=== PATIENT | male | born 1975 | race Hispanic/Latino ===

== ENCOUNTER 2022-08-11 14:35 | Inpatient (IN) | payer SELFPAY ==
[2022-08-11 15:21] LABS: #Lymphocytes 1.3 thou/uL (1.20-3.40); #Monocytes 0.3 thou/uL (0.11-0.59); #Neutrophils 3.6 thou/uL (1.40-6.50); %Basophils 0.9 % (0.0-1.0); %Eosinophils 0.9 % (0.0-10.0); %Lymphocytes 24.1 % (21.0-51.0); %Monocytes 5.1 % (0.0-10.0); Hemoglobin 8.7 g/dL (14.0-18.0); Mean Corpuscular Hemoglobin 32.4 pg (27.0-31.0); Mean Corpuscular Volume 98.2 fl (78.0-98.0); Mean Platelet Volume 8.1 fL (7.4-10.4); Platelet Count 316 10x3/uL (130-400); RBC Distribution Width 12.1 % (11.5-14.5); Red Blood Cell (RBC) Count 2.69 mill/uL (4.70-6.10); White Blood Cell (WBC) Count 5.2 10x3/uL (4.8-10.8)
[2022-08-11] MEDS ORDERED: hydrALAZINE 20 MG/ML VIAL ONE (16:04)
[2022-08-11 16:40] LABS: Albumin 2.6 g/dL (3.5-5.0)
[2022-08-11 16:41] LABS: Chloride 109 mmol/L (98-107); Potassium 4.4 mmol/L (3.5-5.1); Sodium 137 mmol/L (136-145)
[2022-08-11 16:42] LABS: Calcium 8.5 mg/dL (7.8-10.44); Glucose 76 mg/dL (70-105)
[2022-08-11 16:43] LABS: Globulin 3.8 g/dL (2.4-3.5); Protein, Total 6.4 g/dL (6.0-8.3)
[2022-08-11 16:44] LABS: Anion Gap 13 mmol/L (10-20); Bilirubin, Total Less than 0.2 mg/dL (0.2-1.2); Carbon Dioxide 19 mmol/L (22-29)
[2022-08-11 16:45] LABS: Alkaline Phosphatase 140 U/L (40-110)
[2022-08-11 16:46] LABS: Calc. Creatinine Clearance 0 mL/min (70-130); Estimated GFR 28
[2022-08-11 16:47] LABS: AST (SGOT) 15 U/L (5-34); BUN (Urea Nitrogen) 22 mg/dL (8.9-20.6)
[2022-08-11 16:48] LABS: ALT (SGPT) 8 U/L (8-55)
[2022-08-11] MEDS ORDERED: Dextrose 50% Abboject 50 ML SYRINGE SLOW IVP PRN (18:40)
[2022-08-11] MEDS ORDERED: Ondansetron PF 4 MG/2 ML Vial IVP PRN (18:40)
[2022-08-11] MEDS ORDERED: Dextrose 5% in Water 1,000 ML IV PRN (18:40)
[2022-08-11] MEDS ORDERED: Acetaminophen 325 MG TAB PO PRN (18:40)
[2022-08-11] MEDS ORDERED: HumaLOG 300 UNITS/3 ML VIAL SC PRN (18:42)
[2022-08-11 18:53] LABS: SARS-CoV-2 NAA Rapid Test Not Detected (NotDetected)
[2022-08-11 19:57] LABS: Troponin I Less than 0.010 ng/mL (< 0.028)
[2022-08-11] MEDS ORDERED: Heparin 10,000 UNITS/ 10 ML VIAL ONE (23:06)
[2022-08-12] MEDS: Heparin 5,000 UNITS/ML VIAL SC SCH ×4 (01:47→21:00)
[2022-08-12] MEDS ORDERED: Furosemide 40 MG/4 ML VIAL ONE ×2 (05:55→14:09)
[2022-08-12] MEDS: Furosemide 20 MG/2 ML VIAL SLOW IVP SCH ×2 (06:29→14:14)
[2022-08-12] MEDS: Albumin 25% 25 GM/100 ML BOT IVPB SCH ×3 (06:29→17:46)
[2022-08-12 07:29] LABS: #Eosinphils 0.2 thou/uL (0.0-0.7); #Lymphocytes 1.6 thou/uL (1.20-3.40); #Monocytes 0.4 thou/uL (0.11-0.59); #Neutrophils 2.9 thou/uL (1.40-6.50); %Basophils 0.8 % (0.0-1.0); %Eosinophils 3.2 % (0.0-10.0); %Lymphocytes 32.2 % (21.0-51.0); %Monocytes 6.8 % (0.0-10.0); Hemoglobin 7.9 g/dL (14.0-18.0); Mean Corpuscular HGB CONC 32.6 g/dL (32.0-36.0); Mean Corpuscular Hemoglobin 32.9 pg (27.0-31.0); Mean Platelet Volume 7.5 fL (7.4-10.4); Platelet Count 282 10x3/uL (130-400); RBC Distribution Width 12.3 % (11.5-14.5); Red Blood Cell (RBC) Count 2.41 mill/uL (4.70-6.10); White Blood Cell (WBC) Count 5.1 10x3/uL (4.8-10.8)
[2022-08-12 08:03] LABS: Anion Gap 11 mmol/L (10-20); BUN (Urea Nitrogen) 28 mg/dL (8.9-20.6); Calc. Creatinine Clearance 0 mL/min (70-130); Carbon Dioxide 21 mmol/L (22-29); Chloride 110 mmol/L (98-107); Estimated GFR 26; Glucose 93 mg/dL (70-105); Potassium 4.1 mmol/L (3.5-5.1); Sodium 138 mmol/L (136-145)
[2022-08-12] MEDS ORDERED: Metoprolol Tartrate 25 MG TAB PO SCH (09:45)
[2022-08-12] MEDS ORDERED: Metoprolol Tartrate 25 MG TAB ONE (10:22)
[2022-08-12 13:02] LABS: Bacteria/HPF None Seen HPF (None Seen); Bilirubin Negative (Negative); Blood, Urine Trace (Negative); Clarity Clear (Clear); Glucose, Urine (Dipstick) 70 mg/dL (Negative); Ketone, Urine Negative (Negative); Leukocyte Negative Leu/uL (Negative); Nitrite Negative (Negative); Protein, Urine (Dipstick) 100 mg/dL (Neg-Trace); RBC/HPF 0-3 HPF (0-3); Specific Gravity, Urine 1.007 (1.002-1.036); Squamous Epithelial None Seen HPF (0-3); Urobilinogen Normal mg/dL (Less than 2); WBC/HPF 0-3 HPF (0-3)
[2022-08-12] MEDS: niCARdipine 25 MG in Sodium Chloride 0.9% 250 ML 250 ML IVPB SCH (15:15)
[2022-08-12 15:25] VITALS: BMI 35.4
[2022-08-12] MEDS: Metoprolol Tartrate 25 MG TAB PO SCH (20:59)
[2022-08-13] MEDS: Albumin 25% 25 GM/100 ML BOT IVPB SCH (00:13)
[2022-08-13] MEDS ORDERED: hydrALAZINE 25 MG TAB PO SCH ×2 (01:30→10:30)
[2022-08-13 03:52] LABS: #Eosinphils 0.2 thou/uL (0.0-0.7); #Monocytes 0.4 thou/uL (0.11-0.59); %Basophils 0.9 % (0.0-1.0); %Eosinophils 4.1 % (0.0-10.0); %Lymphocytes 35.2 % (21.0-51.0); %Monocytes 6.6 % (0.0-10.0); %Neutrophils 53.3 % (42.0-75.0); Hemoglobin 7.3 g/dL (14.0-18.0); Hemoglobin A1c 5.2 % (4.0-6.0); Mean Corpuscular HGB CONC 31.9 g/dL (32.0-36.0); Mean Corpuscular Hemoglobin 31.8 pg (27.0-31.0); Mean Corpuscular Volume 99.5 fl (78.0-98.0); Platelet Count 265 10x3/uL (130-400); RBC Distribution Width 12.1 % (11.5-14.5); Red Blood Cell (RBC) Count 2.29 mill/uL (4.70-6.10); White Blood Cell (WBC) Count 5.6 10x3/uL (4.8-10.8)
[2022-08-13 04:13] LABS: Anion Gap 12 mmol/L (10-20); BUN (Urea Nitrogen) 28 mg/dL (8.9-20.6); Calc. Creatinine Clearance 37 mL/min (70-130); Calcium 8.3 mg/dL (7.8-10.44); Carbon Dioxide 21 mmol/L (22-29); Chloride 112 mmol/L (98-107); Estimated GFR 22; Glucose 133 mg/dL (70-105); Potassium 3.8 mmol/L (3.5-5.1); Sodium 141 mmol/L (136-145)
[2022-08-13] MEDS: Furosemide 20 MG/2 ML VIAL SLOW IVP SCH ×2 (05:12→12:35)
[2022-08-13] MEDS: Heparin 5,000 UNITS/ML VIAL SC SCH ×3 (08:17→20:11)
[2022-08-13] MEDS: Metoprolol Tartrate 25 MG TAB PO SCH ×2 (08:17→20:11)
[2022-08-13] MEDS ORDERED: FLU VACC QS2022-23(6MOS UP)/PF 60 MCG/0.5 ML SYRINGE IM ONE (09:00)
[2022-08-13] MEDS ORDERED: Metoprolol Tartrate 25 MG TAB PO SCH ×3 (10:30→21:00)
[2022-08-13] MEDS: HumaLOG 300 UNITS/3 ML VIAL SC PRN ×2 (11:28→17:05)
[2022-08-13] MEDS ORDERED: Docusate 100 MG CAP PO PRN (11:59)
[2022-08-13] MEDS ORDERED: Losartan 25 MG TAB PO SCH (12:25)
[2022-08-13] MEDS ORDERED: Labetalol HCl 100 MG/20 ML VIAL SLOW IVP SCH ×2 (15:15→18:30)
[2022-08-13] MEDS: hydrALAZINE 25 MG TAB PO SCH ×2 (15:18→20:11)
[2022-08-13] MEDS ORDERED: Labetalol HCl 100 MG/20 ML VIAL IVPB SCH (18:30)
[2022-08-14 04:00] LABS: #Eosinphils 0.3 thou/uL (0.0-0.7); #Monocytes 0.5 thou/uL (0.11-0.59); #Neutrophils 3.1 thou/uL (1.40-6.50); %Basophils 0.7 % (0.0-1.0); %Eosinophils 4.6 % (0.0-10.0); %Lymphocytes 33.9 % (21.0-51.0); %Monocytes 7.8 % (0.0-10.0); %Neutrophils 52.9 % (42.0-75.0); Hemoglobin 7.4 g/dL (14.0-18.0); Mean Corpuscular HGB CONC 32.6 g/dL (32.0-36.0); Mean Corpuscular Hemoglobin 32.6 pg (27.0-31.0); Mean Corpuscular Volume 99.9 fl (78.0-98.0); Mean Platelet Volume 8.1 fL (7.4-10.4); Platelet Count 280 10x3/uL (130-400); RBC Distribution Width 11.9 % (11.5-14.5); Red Blood Cell (RBC) Count 2.28 mill/uL (4.70-6.10); White Blood Cell (WBC) Count 5.9 10x3/uL (4.8-10.8)
[2022-08-14 04:06] LABS: Reticulocyte Count 1.8 % (0.5-1.5)
[2022-08-14 04:28] LABS: Anion Gap 13 mmol/L (10-20); BUN (Urea Nitrogen) 29 mg/dL (8.9-20.6); Calc. Creatinine Clearance 35 mL/min (70-130); Calcium 8.3 mg/dL (7.8-10.44); Carbon Dioxide 20 mmol/L (22-29); Chloride 110 mmol/L (98-107); Estimated GFR 22; Glucose 136 mg/dL (70-105); Potassium 3.7 mmol/L (3.5-5.1); Sodium 139 mmol/L (136-145)
[2022-08-14] MEDS: Furosemide 20 MG/2 ML VIAL SLOW IVP SCH ×2 (05:58→15:17)
[2022-08-14] MEDS: hydrALAZINE 25 MG TAB PO SCH ×3 (08:16→20:12)
[2022-08-14] MEDS: Metoprolol Tartrate 25 MG TAB PO SCH ×2 (08:17→20:12)
[2022-08-14] MEDS: Losartan 25 MG TAB PO SCH (08:17)
[2022-08-14] MEDS: Heparin 5,000 UNITS/ML VIAL SC SCH ×3 (08:17→20:12)
[2022-08-14] MEDS: Amlodipine 10 MG TAB PO SCH (08:30)
[2022-08-14] MEDS: niCARdipine 25 MG in Sodium Chloride 0.9% 250 ML 250 ML IVPB SCH (11:09)
[2022-08-14] MEDS: HumaLOG 300 UNITS/3 ML VIAL SC PRN (11:52)
[2022-08-15 04:21] LABS: #Basophils 0.1 thou/uL (0.0-0.2); #Eosinphils 0.4 thou/uL (0.0-0.7); #Lymphocytes 1.9 thou/uL (1.20-3.40); #Monocytes 0.4 thou/uL (0.11-0.59); #Neutrophils 2.7 thou/uL (1.40-6.50); %Eosinophils 7.3 % (0.0-10.0); %Lymphocytes 35.6 % (21.0-51.0); %Monocytes 6.7 % (0.0-10.0); %Neutrophils 49.5 % (42.0-75.0); Hemoglobin 7.7 g/dL (14.0-18.0); Mean Corpuscular HGB CONC 32.9 g/dL (32.0-36.0); Mean Corpuscular Hemoglobin 32.5 pg (27.0-31.0); Mean Platelet Volume 8.3 fL (7.4-10.4); Platelet Count 291 10x3/uL (130-400); RBC Distribution Width 12.2 % (11.5-14.5); Red Blood Cell (RBC) Count 2.37 mill/uL (4.70-6.10); White Blood Cell (WBC) Count 5.4 10x3/uL (4.8-10.8)
[2022-08-15 04:48] LABS: Anion Gap 13 mmol/L (10-20); BUN (Urea Nitrogen) 30 mg/dL (8.9-20.6); Calc. Creatinine Clearance 34 mL/min (70-130); Calcium 8.2 mg/dL (7.8-10.44); Carbon Dioxide 22 mmol/L (22-29); Chloride 109 mmol/L (98-107); Estimated GFR 21; Glucose 137 mg/dL (70-105); Potassium 3.5 mmol/L (3.5-5.1); Sodium 140 mmol/L (136-145)
[2022-08-15] MEDS: Furosemide 20 MG/2 ML VIAL SLOW IVP SCH ×2 (05:29→15:39)
[2022-08-15] MEDS: Heparin 5,000 UNITS/ML VIAL SC SCH ×3 (07:50→21:17)
[2022-08-15] MEDS: Losartan 25 MG TAB PO SCH (07:51)
[2022-08-15] MEDS: hydrALAZINE 25 MG TAB PO SCH ×3 (07:51→21:16)
[2022-08-15] MEDS: Metoprolol Tartrate 25 MG TAB PO SCH ×2 (07:51→21:16)
[2022-08-15] MEDS: Amlodipine 10 MG TAB PO SCH (07:51)
[2022-08-15] MEDS: HumaLOG 300 UNITS/3 ML VIAL SC PRN (11:46)
[2022-08-16 04:52] LABS: Anion Gap 12 mmol/L (10-20); BUN (Urea Nitrogen) 33 mg/dL (8.9-20.6); Calc. Creatinine Clearance 30 mL/min (70-130); Carbon Dioxide 21 mmol/L (22-29); Chloride 110 mmol/L (98-107); Estimated GFR 18; Glucose 142 mg/dL (70-105); Potassium 3.4 mmol/L (3.5-5.1); Sodium 140 mmol/L (136-145)
[2022-08-16] MEDS: Furosemide 20 MG/2 ML VIAL SLOW IVP SCH ×2 (05:40→12:51)
[2022-08-16] MEDS: Losartan 25 MG TAB PO SCH (08:49)
[2022-08-16] MEDS: Amlodipine 10 MG TAB PO SCH (08:49)
[2022-08-16] MEDS: Metoprolol Tartrate 25 MG TAB PO SCH ×2 (08:49→20:57)
[2022-08-16] MEDS: hydrALAZINE 25 MG TAB PO SCH ×3 (08:49→20:57)
[2022-08-16] MEDS: Heparin 5,000 UNITS/ML VIAL SC SCH ×3 (08:49→20:57)
[2022-08-16 21:02] VITALS: BP 157/78
[2022-08-17 04:16] LABS: #Basophils 0.1 thou/uL (0.0-0.2); #Eosinphils 0.3 thou/uL (0.0-0.7); #Lymphocytes 1.9 thou/uL (1.20-3.40); #Monocytes 0.4 thou/uL (0.11-0.59); #Neutrophils 2.8 thou/uL (1.40-6.50); %Basophils 1.1 % (0.0-1.0); %Lymphocytes 34.7 % (21.0-51.0); %Neutrophils 52.2 % (42.0-75.0); Hemoglobin 7.5 g/dL (14.0-18.0); Mean Corpuscular HGB CONC 32.9 g/dL (32.0-36.0); Mean Corpuscular Hemoglobin 33.3 pg (27.0-31.0); Mean Platelet Volume 8.2 fL (7.4-10.4); Platelet Count 303 10x3/uL (130-400); RBC Distribution Width 12.1 % (11.5-14.5); Red Blood Cell (RBC) Count 2.25 mill/uL (4.70-6.10); White Blood Cell (WBC) Count 5.4 10x3/uL (4.8-10.8)
[2022-08-17 04:29] LABS: Anion Gap 12 mmol/L (10-20); BUN (Urea Nitrogen) 34 mg/dL (8.9-20.6); Calc. Creatinine Clearance 31 mL/min (70-130); Carbon Dioxide 22 mmol/L (22-29); Chloride 111 mmol/L (98-107); Estimated GFR 19; Glucose 144 mg/dL (70-105); Potassium 3.4 mmol/L (3.5-5.1); Sodium 142 mmol/L (136-145)
[2022-08-17] MEDS: Furosemide 20 MG/2 ML VIAL SLOW IVP SCH ×2 (05:41→15:45)
[2022-08-17] MEDS: hydrALAZINE 25 MG TAB PO SCH ×2 (09:03→15:44)
[2022-08-17] MEDS: Amlodipine 10 MG TAB PO SCH (09:04)
[2022-08-17] MEDS: Heparin 5,000 UNITS/ML VIAL SC SCH ×2 (09:04→15:45)
[2022-08-17] MEDS: Metoprolol Tartrate 25 MG TAB PO SCH (09:04)
[2022-08-17] MEDS: Losartan 25 MG TAB PO SCH (09:04)
[2022-08-17 13:27] VITALS: TEMP 98.2
[2022-08-17 16:13] LABS: A/G Ratio 0.8 (0.7-1.7); Albumin 2.3 g/dL (2.9-4.4); Alpha 1 0.3 g/dL (0.0-0.4); Alpha 2 0.9 g/dL (0.4-1.0); Beta 0.9 g/dL (0.7-1.3); Gamma 0.9 g/dL (0.4-1.8); M-Spike Not Observed g/dL (Not Observed); Protein Electrophoresis Intrp Note: (.)
== END 2022-08-17 15:51 | disposition home or self-care (01) | DRG 305 ==
LOC: ERS 14:35 → ERHOLD 17:52 → IMCU/EMU 08-12 15:05
PROVIDERS: ADMIT Family Medicine; ATTEND Internal Medicine
DX: I16.0 Hypertensive urgency (principal); N17.9 Acute kidney failure, unspecified; E11.649 Type 2 diabetes mellitus with hypoglycemia without coma; Z20.822 Contact with and (suspected) exposure to COVID-19; E78.5 Hyperlipidemia, unspecified; I12.9 Hypertensive chronic kidney disease with stage 1 through stage 4 chronic kidney disease, or unspecified chronic kidney disease; E11.22 Type 2 diabetes mellitus with diabetic chronic kidney disease; D63.1 Anemia in chronic kidney disease; M19.90 Unspecified osteoarthritis, unspecified site; E88.09 Other disorders of plasma-protein metabolism, not elsewhere classified; N18.9 Chronic kidney disease, unspecified; E11.319 Type 2 diabetes mellitus with unspecified diabetic retinopathy without macular edema; T38.3X5A Adverse effect of insulin and oral hypoglycemic [antidiabetic] drugs, initial encounter; Z79.84 Long term (current) use of oral hypoglycemic drugs; Z79.899 Other long term (current) drug therapy
CPT/HCPCS: 36415; 36416; 71045; 76770; 80048; 80053; 81001; 82274; 83036; 83880; 84155; 84165; 84443; 84484; 85025; 85046; 87040; 87077; 87149; 87186; 93005; 93306; 96374; J0360; J1644; J1940; J7050; J7070; P9047; U0002

== ENCOUNTER 2022-10-06 23:50 | Inpatient (IN) | payer MEDICAID, SELFPAY ==
[2022-10-07] MEDS ORDERED: CALCIUM GLUC 1 GM/NS 50 ML BAG ONE (00:01)
[2022-10-07] MEDS ORDERED: Calcium Gluc 4.6 MEQ/10 ML (100 MG/ML) ONE ×2 (00:01→01:09)
[2022-10-07] MEDS ORDERED: Sodium Bicarb 50 MEQ/50 ML Abboject 8.4% SYRINGE ONE (00:03)
[2022-10-07] MEDS ORDERED: Dextrose 50% Abboject 50 ML SYRINGE ONE (00:03)
[2022-10-07 00:20] LABS: #Basophils 0.1 thou/uL (0.0-0.2); #Eosinphils 0.1 thou/uL (0.0-0.7); #Lymphocytes 1.5 thou/uL (1.20-3.40); #Monocytes 0.4 thou/uL (0.11-0.59); #Neutrophils 2.4 thou/uL (1.40-6.50); %Basophils 1.1 % (0.0-1.0); %Eosinophils 2.6 % (0.0-10.0); %Lymphocytes 33.1 % (21.0-51.0); %Monocytes 8.8 % (0.0-10.0); %Neutrophils 54.3 % (42.0-75.0); Hemoglobin 8.6 g/dL (14.0-18.0); Mean Corpuscular HGB CONC 31.7 g/dL (32.0-36.0); Mean Corpuscular Volume 97.9 fl (78.0-98.0); Mean Platelet Volume 8.7 fL (7.4-10.4); Platelet Count 286 10x3/uL (130-400); RBC Distribution Width 12.1 % (11.5-14.5); Red Blood Cell (RBC) Count 2.77 mill/uL (4.70-6.10); White Blood Cell (WBC) Count 4.4 10x3/uL (4.8-10.8)
[2022-10-07 00:39] LABS: Actual Bicarbonate (HCO3a) 18.4 mEq/L (22-28); Analyzer IN Cardio ER; Base Excess (BEa) -7.2 mEq/L (-2.0 to +3.0); CO2 Tension 37.5 mmHg (35.0-45.0); Calcium, Ionized (arterial) 1.06 mmol/L (1.12-1.30); Carboxyhemoglobin (COHb) 0.2 gm% (0.0-3.0); pH, Arterial 7.31 (7.35-7.45)
[2022-10-07 00:41] LABS: ALT (SGPT) 40 U/L (8-55); AST (SGOT) 36 U/L (5-34); Albumin 3.4 g/dL (3.5-5.0); Alkaline Phosphatase 182 U/L (40-110); Anion Gap 15 mmol/L (10-20); BUN (Urea Nitrogen) 91 mg/dL (8.9-20.6); Bilirubin, Total 0.2 mg/dL (0.2-1.2); Calc. Creatinine Clearance 0 mL/min (70-130); Carbon Dioxide 19 mmol/L (22-29); Chloride 99 mmol/L (98-107); Estimated GFR 18; Globulin 3.4 g/dL (2.4-3.5); Glucose 161 mg/dL (70-105); Magnesium 3.5 mg/dL (1.6-2.6); Protein, Total 6.8 g/dL (6.0-8.3); Sodium 124 mmol/L (136-145)
[2022-10-07 00:44] LABS: Potassium 8.6 mmol/L (3.5-5.1)
[2022-10-07 00:54] LABS: O2 Tension (PaO2), arterial 52.6 mmHg (80.0-100.0); Potassium - ABG Lab 8.26 mmol/L (3.70-5.30)
[2022-10-07 00:55] LABS: ALV-art Gradient 71.645 mmHg (0-20); Puncture Site RRA
[2022-10-07] MEDS ORDERED: Insulin Regular 300 UNITS/3 ML VIAL ONE (01:11)
[2022-10-07] MEDS ORDERED: Senokot S 8.6-50 MG TAB PO PRN (02:49)
[2022-10-07] MEDS ORDERED: Ondansetron ODT 4 MG TAB PO PRN (02:49)
[2022-10-07] MEDS ORDERED: Calcium Carbonate 500 MG ChewTAB PO PRN (02:49)
[2022-10-07 03:10] LABS: SARS-CoV-2 NAA Rapid Test Not Detected (NotDetected)
[2022-10-07 04:42] LABS: HBSAB Concentration Less than 8.00 mIU/mL; HBSAg Index 0.24 S/CO (0-0.99); Hep B Core Total Ab Non-Reactive (NonReactive); Hep B Core Total Index 0.15 S/CO (0-0.79); Hep B Surf AB Non-Reactive (NonReactive); Hep B Surf Ag Non-Reactive S/CO (NonReactive); Hep C IgG Ab Non-Reactive (NonReactive); Hep C Index 0.16 S/CO (0-0.79)
[2022-10-07 05:32] VITALS: BMI 36.5
[2022-10-07 07:51] LABS: Anion Gap 12 mmol/L (10-20); BUN (Urea Nitrogen) 65 mg/dL (8.9-20.6); BUN/Creatinine Ratio 24.07; Calc. Creatinine Clearance 51 mL/min (70-130); Calcium 8.2 mg/dL (7.8-10.44); Carbon Dioxide 21 mmol/L (22-29); Chloride 103 mmol/L (98-107); Estimated GFR 29; Phosphorus 4.9 mg/dL (2.3-4.7); Sodium 130 mmol/L (136-145)
[2022-10-07 07:59] LABS: Glucose 49 mg/dL (70-105); Potassium 6.3 mmol/L (3.5-5.1)
[2022-10-07] MEDS ORDERED: Heparin 10,000 UNITS/ 10 ML VIAL ONE ×2 (08:48→08:51)
[2022-10-07] MEDS: Heparin 5,000 UNITS/ML VIAL SC SCH ×2 (08:55→20:10)
[2022-10-07] MEDS: Famotidine 20 MG TAB PO SCH (11:30)
[2022-10-08 00:32] LABS: Albumin 2.8 g/dL (3.5-5.0); Anion Gap 11 mmol/L (10-20); BUN (Urea Nitrogen) 54 mg/dL (8.9-20.6); BUN/Creatinine Ratio 20.38; Calc. Creatinine Clearance 52 mL/min (70-130); Calcium 8.1 mg/dL (7.8-10.44); Carbon Dioxide 24 mmol/L (22-29); Chloride 105 mmol/L (98-107); Estimated GFR 29; Glucose 101 mg/dL (70-105); Phosphorus 4.1 mg/dL (2.3-4.7); Potassium 5.9 mmol/L (3.5-5.1); Sodium 134 mmol/L (136-145)
[2022-10-08 07:44] LABS: Anion Gap 11 mmol/L (10-20); BUN (Urea Nitrogen) 51 mg/dL (8.9-20.6); Calc. Creatinine Clearance 46 mL/min (70-130); Calcium 7.9 mg/dL (7.8-10.44); Carbon Dioxide 23 mmol/L (22-29); Chloride 109 mmol/L (98-107); Estimated GFR 28; Glucose 75 mg/dL (70-105); Potassium 5.9 mmol/L (3.5-5.1); Sodium 137 mmol/L (136-145)
[2022-10-08 07:45] LABS: Hemoglobin 7.4 g/dL (14.0-18.0); Mean Corpuscular HGB CONC 32.9 g/dL (32.0-36.0); Mean Corpuscular Hemoglobin 31.7 pg (27.0-31.0); Mean Corpuscular Volume 96.2 fl (78.0-98.0); Mean Platelet Volume 7.9 fL (7.4-10.4); Platelet Count 219 10x3/uL (130-400); RBC Distribution Width 12.1 % (11.5-14.5); Red Blood Cell (RBC) Count 2.34 mill/uL (4.70-6.10); White Blood Cell (WBC) Count 3.3 10x3/uL (4.8-10.8)
[2022-10-08] MEDS ORDERED: EPOETIN ALFA-EPBX (ESRD) 4,000 UNIT/ML VIAL SC SCH (08:30)
[2022-10-08] MEDS: Heparin 5,000 UNITS/ML VIAL SC SCH ×2 (08:35→20:09)
[2022-10-08 08:44] LABS: Eosinophils 4 % (0-10); Lymphocytes 63 % (21-51); MDiff Complete? YES; Monocytes 10 % (0-10); Neutrophil 23 % (42-75); Platelet Morphology Comment Appears Adequate
[2022-10-08] MEDS: EPOETIN ALFA-EPBX (ESRD) 10,000 UNIT/ML VIAL SC SCH (16:42)
[2022-10-08] MEDS: Tuberculin PPD 0.1 ML VIAL I-DERMAL SCH (17:03)
[2022-10-09 04:31] LABS: #Basophils 0.1 thou/uL (0.0-0.2); #Eosinphils 0.2 thou/uL (0.0-0.7); #Lymphocytes 2.3 thou/uL (1.20-3.40); #Monocytes 0.6 thou/uL (0.11-0.59); #Neutrophils 1.9 thou/uL (1.40-6.50); %Basophils 1.2 % (0.0-1.0); %Eosinophils 4.3 % (0.0-10.0); %Lymphocytes 45.3 % (21.0-51.0); %Monocytes 12.5 % (0.0-10.0); %Neutrophils 36.7 % (42.0-75.0); Hemoglobin 5.7 g/dL (14.0-18.0); Mean Corpuscular HGB CONC 33.4 g/dL (32.0-36.0); Mean Corpuscular Volume 95.8 fl (78.0-98.0); Mean Platelet Volume 8.1 fL (7.4-10.4); Platelet Count 270 10x3/uL (130-400); RBC Distribution Width 11.9 % (11.5-14.5); White Blood Cell (WBC) Count 5.1 10x3/uL (4.8-10.8)
[2022-10-09 04:36] LABS: Anion Gap 10 mmol/L (10-20); BUN (Urea Nitrogen) 32 mg/dL (8.9-20.6); Calc. Creatinine Clearance 66 mL/min (70-130); Calcium 8.3 mg/dL (7.8-10.44); Carbon Dioxide 26 mmol/L (22-29); Chloride 107 mmol/L (98-107); Estimated GFR 43; Glucose 104 mg/dL (70-105); Potassium 4.4 mmol/L (3.5-5.1); Sodium 139 mmol/L (136-145)
[2022-10-09 05:01] LABS: #Eosinphils 0.2 thou/uL (0.0-0.7); #Monocytes 0.5 thou/uL (0.11-0.59); #Neutrophils 1.5 thou/uL (1.40-6.50); %Basophils 0.6 % (0.0-1.0); %Eosinophils 4.1 % (0.0-10.0); %Lymphocytes 46.3 % (21.0-51.0); %Monocytes 12.6 % (0.0-10.0); %Neutrophils 36.3 % (42.0-75.0); Hemoglobin 7.4 g/dL (14.0-18.0); Mean Corpuscular HGB CONC 33.2 g/dL (32.0-36.0); Mean Corpuscular Hemoglobin 31.8 pg (27.0-31.0); Mean Corpuscular Volume 95.7 fl (78.0-98.0); Mean Platelet Volume 7.4 fL (7.4-10.4); Platelet Count 207 10x3/uL (130-400); Red Blood Cell (RBC) Count 2.32 mill/uL (4.70-6.10); White Blood Cell (WBC) Count 4.2 10x3/uL (4.8-10.8)
[2022-10-09] MEDS: Tuberculin PPD 0.1 ML VIAL I-DERMAL SCH (08:03)
[2022-10-09] MEDS: Heparin 5,000 UNITS/ML VIAL SC SCH ×2 (08:30→20:02)
[2022-10-09] MEDS: Famotidine 20 MG TAB PO SCH (08:30)
[2022-10-09] MEDS ORDERED: Heparin 10,000 UNITS/ 10 ML VIAL ONE (12:33)
[2022-10-09] MEDS: Metoprolol Tartrate 25 MG TAB PO SCH (18:37)
[2022-10-09] MEDS: hydrALAZINE 25 MG TAB PO SCH (18:37)
[2022-10-09] MEDS: Atorvastatin Calcium 20 MG TAB PO SCH (20:01)
[2022-10-10] MEDS ORDERED: Losartan 25 MG TAB PO SCH (00:15)
[2022-10-10] MEDS ORDERED: hydrALAZINE 25 MG TAB PO SCH (00:15)
[2022-10-10 04:18] LABS: #Eosinphils 0.2 thou/uL (0.0-0.7); #Lymphocytes 1.6 thou/uL (1.20-3.40); #Monocytes 0.4 thou/uL (0.11-0.59); #Neutrophils 2.4 thou/uL (1.40-6.50); %Basophils 0.4 % (0.0-1.0); %Eosinophils 4.8 % (0.0-10.0); %Lymphocytes 34.5 % (21.0-51.0); %Monocytes 8.4 % (0.0-10.0); Hemoglobin 9.1 g/dL (14.0-18.0); Mean Corpuscular HGB CONC 32.6 g/dL (32.0-36.0); Mean Corpuscular Hemoglobin 31.2 pg (27.0-31.0); Mean Corpuscular Volume 95.9 fl (78.0-98.0); Mean Platelet Volume 7.2 fL (7.4-10.4); Platelet Count 197 10x3/uL (130-400); RBC Distribution Width 12.1 % (11.5-14.5); Red Blood Cell (RBC) Count 2.91 mill/uL (4.70-6.10); White Blood Cell (WBC) Count 4.7 10x3/uL (4.8-10.8)
[2022-10-10 04:35] LABS: Anion Gap 10 mmol/L (10-20); BUN (Urea Nitrogen) 18 mg/dL (8.9-20.6); Calc. Creatinine Clearance 0 mL/min (70-130); Calcium 8.3 mg/dL (7.8-10.44); Carbon Dioxide 28 mmol/L (22-29); Chloride 106 mmol/L (98-107); Estimated GFR 46; Glucose 152 mg/dL (70-105); Potassium 4.9 mmol/L (3.5-5.1); Sodium 139 mmol/L (136-145)
[2022-10-10] MEDS: Tuberculin PPD 0.1 ML VIAL I-DERMAL SCH (08:31)
[2022-10-10] MEDS ORDERED: FLU VACC QS2022-23(6MOS UP)/PF 60 MCG/0.5 ML SYRINGE IM ONE (09:00)
[2022-10-10] MEDS: Amlodipine 10 MG TAB PO SCH (09:06)
[2022-10-10] MEDS: Metoprolol Tartrate 25 MG TAB PO SCH ×2 (09:07→21:08)
[2022-10-10] MEDS: Heparin 5,000 UNITS/ML VIAL SC SCH ×2 (09:07→21:09)
[2022-10-10] MEDS: hydrALAZINE 25 MG TAB PO SCH ×3 (09:07→21:08)
[2022-10-10] MEDS: Losartan 25 MG TAB PO SCH (09:07)
[2022-10-10] MEDS: Ferrous Gluconate 324 MG TAB PO SCH (09:07)
[2022-10-10] MEDS: Atorvastatin Calcium 20 MG TAB PO SCH (21:08)
[2022-10-11 05:08] LABS: #Eosinphils 0.4 thou/uL (0.0-0.7); #Monocytes 0.5 thou/uL (0.11-0.59); %Basophils 0.3 % (0.0-1.0); %Eosinophils 7.3 % (0.0-10.0); %Lymphocytes 42.1 % (21.0-51.0); %Monocytes 9.9 % (0.0-10.0); %Neutrophils 40.4 % (42.0-75.0); Hemoglobin 7.4 g/dL (14.0-18.0); Mean Corpuscular HGB CONC 32.8 g/dL (32.0-36.0); Mean Corpuscular Hemoglobin 31.5 pg (27.0-31.0); Mean Corpuscular Volume 96.2 fl (78.0-98.0); Mean Platelet Volume 7.1 fL (7.4-10.4); Platelet Count 184 10x3/uL (130-400); Red Blood Cell (RBC) Count 2.34 mill/uL (4.70-6.10); White Blood Cell (WBC) Count 4.9 10x3/uL (4.8-10.8)
[2022-10-11] MEDS ORDERED: hydrALAZINE 25 MG TAB PO SCH (05:15)
[2022-10-11 05:35] LABS: Anion Gap 11 mmol/L (10-20); BUN (Urea Nitrogen) 30 mg/dL (8.9-20.6); Calc. Creatinine Clearance 54 mL/min (70-130); Calcium 7.8 mg/dL (7.8-10.44); Carbon Dioxide 24 mmol/L (22-29); Chloride 108 mmol/L (98-107); Estimated GFR 36; Glucose 114 mg/dL (70-105); Potassium 4.5 mmol/L (3.5-5.1); Sodium 138 mmol/L (136-145)
[2022-10-11] MEDS ORDERED: READ PPD TEST SITE PO SCH (09:00)
[2022-10-11] MEDS: hydrALAZINE 25 MG TAB PO SCH ×3 (09:06→20:53)
[2022-10-11] MEDS: Amlodipine 10 MG TAB PO SCH (09:07)
[2022-10-11] MEDS: Ferrous Gluconate 324 MG TAB PO SCH (09:07)
[2022-10-11] MEDS: Losartan 25 MG TAB PO SCH (09:07)
[2022-10-11] MEDS: Famotidine 20 MG TAB PO SCH (09:07)
[2022-10-11] MEDS: Metoprolol Tartrate 25 MG TAB PO SCH ×2 (09:07→20:53)
[2022-10-11] MEDS: Heparin 5,000 UNITS/ML VIAL SC SCH ×2 (09:08→20:54)
[2022-10-11] MEDS: Tuberculin PPD 0.1 ML VIAL I-DERMAL SCH (11:47)
[2022-10-11] MEDS ORDERED: Heparin 10,000 UNITS/ 10 ML VIAL ONE (12:39)
[2022-10-11] MEDS: Atorvastatin Calcium 20 MG TAB PO SCH (20:53)
[2022-10-12 05:18] LABS: #Eosinphils 0.3 thou/uL (0.0-0.7); #Lymphocytes 1.9 thou/uL (1.20-3.40); #Monocytes 0.4 thou/uL (0.11-0.59); #Neutrophils 1.8 thou/uL (1.40-6.50); %Basophils 0.7 % (0.0-1.0); %Eosinophils 6.7 % (0.0-10.0); %Lymphocytes 42.7 % (21.0-51.0); %Monocytes 9.5 % (0.0-10.0); %Neutrophils 40.5 % (42.0-75.0); Hemoglobin 7.3 g/dL (14.0-18.0); Mean Corpuscular HGB CONC 32.3 g/dL (32.0-36.0); Mean Corpuscular Hemoglobin 30.8 pg (27.0-31.0); Mean Corpuscular Volume 95.4 fl (78.0-98.0); Mean Platelet Volume 7.4 fL (7.4-10.4); Platelet Count 170 10x3/uL (130-400); Red Blood Cell (RBC) Count 2.38 mill/uL (4.70-6.10); White Blood Cell (WBC) Count 4.4 10x3/uL (4.8-10.8)
[2022-10-12 05:28] LABS: Anion Gap 9 mmol/L (10-20); BUN (Urea Nitrogen) 19 mg/dL (8.9-20.6); Calc. Creatinine Clearance 64 mL/min (70-130); Calcium 7.9 mg/dL (7.8-10.44); Carbon Dioxide 27 mmol/L (22-29); Chloride 105 mmol/L (98-107); Estimated GFR 46; Glucose 131 mg/dL (70-105); Potassium 4.4 mmol/L (3.5-5.1); Sodium 137 mmol/L (136-145)
[2022-10-12] MEDS: Metoprolol Tartrate 25 MG TAB PO SCH ×2 (05:51→19:31)
[2022-10-12] MEDS ORDERED: CEFAZOLIN 2 GM in Sodium Chloride 0.9% 100 ML IVPB SCH (06:00)
[2022-10-12] MEDS ORDERED: Protamine Sulfate 50 MG/5 ML VIAL ONE (09:35)
[2022-10-12] MEDS ORDERED: Heparin 5,000 UNITS/ML VIAL ONE (09:35)
[2022-10-12] MEDS ORDERED: Bupivacaine/Epinephrine 0.25% 30 ML VIAL ONE (09:35)
[2022-10-12] MEDS ORDERED: Lidocaine 1% MPF 2 ML VIAL ONE (09:35)
[2022-10-12] MEDS ORDERED: Heparin 10,000 UNITS/ 10 ML VIAL ONE (09:39)
[2022-10-12] MEDS ORDERED: Midazolam HCl 2 mg/2 ml Vial ONE ×2 (09:42→09:50)
[2022-10-12] MEDS ORDERED: Fentanyl 250 MCG/5 ML VIAL ONE (09:50)
[2022-10-12] MEDS ORDERED: Sodium Chloride 0.9% 100 ML ONE (09:51)
[2022-10-12] MEDS ORDERED: CEFAZOLIN 2 GM VIAL ONE (09:51)
[2022-10-12] MEDS ORDERED: Fentanyl 100 MCG/2 ML VIAL ONE (11:46)
[2022-10-12] MEDS ORDERED: Ondansetron HCl/PF 4 MG/2 ML Vial IVP PRN (11:55)
[2022-10-12] MEDS ORDERED: Promethazine HCl 25 MG/ML VIAL IM PRN (11:55)
[2022-10-12] MEDS: Amlodipine 10 MG TAB PO SCH (13:59)
[2022-10-12] MEDS: Losartan 25 MG TAB PO SCH (14:00)
[2022-10-12] MEDS: hydrALAZINE 25 MG TAB PO SCH ×3 (14:00→19:31)
[2022-10-12] MEDS: Ferrous Gluconate 324 MG TAB PO SCH (14:00)
[2022-10-12] MEDS: Heparin 5,000 UNITS/ML VIAL SC SCH ×2 (14:01→19:36)
[2022-10-12] MEDS: Acetaminophen 325 MG TAB PO PRN ×2 (14:01→19:31)
[2022-10-12] MEDS: Atorvastatin Calcium 20 MG TAB PO SCH (19:31)
[2022-10-13 04:43] LABS: #Eosinphils 0.2 thou/uL (0.0-0.7); #Lymphocytes 1.3 thou/uL (1.20-3.40); #Monocytes 0.4 thou/uL (0.11-0.59); #Neutrophils 3.1 thou/uL (1.40-6.50); %Basophils 0.2 % (0.0-1.0); %Eosinophils 4.4 % (0.0-10.0); %Lymphocytes 25.5 % (21.0-51.0); %Monocytes 7.5 % (0.0-10.0); %Neutrophils 62.4 % (42.0-75.0); Hemoglobin 6.9 g/dL (14.0-18.0); Mean Corpuscular HGB CONC 32.1 g/dL (32.0-36.0); Mean Corpuscular Volume 96.5 fl (78.0-98.0); Mean Platelet Volume 7.7 fL (7.4-10.4); Platelet Count 161 10x3/uL (130-400); Red Blood Cell (RBC) Count 2.23 mill/uL (4.70-6.10); White Blood Cell (WBC) Count 4.9 10x3/uL (4.8-10.8)
[2022-10-13 05:05] LABS: Anion Gap 11 mmol/L (10-20); BUN (Urea Nitrogen) 24 mg/dL (8.9-20.6); Calc. Creatinine Clearance 49 mL/min (70-130); Calcium 7.9 mg/dL (7.8-10.44); Carbon Dioxide 27 mmol/L (22-29); Chloride 105 mmol/L (98-107); Estimated GFR 35; Glucose 127 mg/dL (70-105); Potassium 4.3 mmol/L (3.5-5.1); Sodium 139 mmol/L (136-145)
[2022-10-13] MEDS: hydrALAZINE 25 MG TAB PO SCH ×3 (07:58→20:25)
[2022-10-13] MEDS: Metoprolol Tartrate 25 MG TAB PO SCH ×2 (07:59→20:25)
[2022-10-13] MEDS: Amlodipine 10 MG TAB PO SCH (07:59)
[2022-10-13] MEDS: Losartan 25 MG TAB PO SCH (07:59)
[2022-10-13] MEDS: Ferrous Gluconate 324 MG TAB PO SCH (07:59)
[2022-10-13] MEDS: Famotidine 20 MG TAB PO SCH (08:00)
[2022-10-13] MEDS: Acetaminophen 325 MG TAB PO PRN ×2 (08:00→14:45)
[2022-10-13] MEDS: Heparin 5,000 UNITS/ML VIAL SC SCH ×2 (08:18→20:25)
[2022-10-13] MEDS ORDERED: Heparin 10,000 UNITS/ 10 ML VIAL ONE (11:11)
[2022-10-13] MEDS: Atorvastatin Calcium 20 MG TAB PO SCH (20:24)
[2022-10-14 06:51] LABS: #Eosinphils 0.1 thou/uL (0.0-0.7); #Lymphocytes 2.1 thou/uL (1.20-3.40); #Monocytes 0.5 thou/uL (0.11-0.59); #Neutrophils 3.1 thou/uL (1.40-6.50); %Basophils 0.7 % (0.0-1.0); %Eosinophils 2.5 % (0.0-10.0); %Lymphocytes 34.7 % (21.0-51.0); %Monocytes 9.2 % (0.0-10.0); %Neutrophils 52.9 % (42.0-75.0); Hemoglobin 7.2 g/dL (14.0-18.0); Mean Corpuscular Hemoglobin 31.7 pg (27.0-31.0); Mean Corpuscular Volume 96.2 fl (78.0-98.0); Mean Platelet Volume 7.7 fL (7.4-10.4); Platelet Count 162 10x3/uL (130-400); Red Blood Cell (RBC) Count 2.27 mill/uL (4.70-6.10); White Blood Cell (WBC) Count 5.9 10x3/uL (4.8-10.8)
[2022-10-14 07:11] LABS: Anion Gap 10 mmol/L (10-20); BUN (Urea Nitrogen) 18 mg/dL (8.9-20.6); Calc. Creatinine Clearance 46 mL/min (70-130); Carbon Dioxide 30 mmol/L (22-29); Chloride 102 mmol/L (98-107); Estimated GFR 33; Glucose 107 mg/dL (70-105); Sodium 138 mmol/L (136-145)
[2022-10-14] MEDS: hydrALAZINE 25 MG TAB PO SCH ×3 (10:28→20:49)
[2022-10-14] MEDS: Amlodipine 10 MG TAB PO SCH (10:28)
[2022-10-14] MEDS: Ferrous Gluconate 324 MG TAB PO SCH (10:28)
[2022-10-14] MEDS: Losartan 25 MG TAB PO SCH (10:29)
[2022-10-14] MEDS: Metoprolol Tartrate 25 MG TAB PO SCH ×2 (10:29→20:50)
[2022-10-14] MEDS: Famotidine 20 MG TAB PO SCH (10:29)
[2022-10-14] MEDS: Heparin 5,000 UNITS/ML VIAL SC SCH ×2 (14:12→20:50)
[2022-10-14] MEDS: Atorvastatin Calcium 20 MG TAB PO SCH (20:49)
[2022-10-15 05:24] LABS: #Eosinphils 0.2 thou/uL (0.0-0.7); #Lymphocytes 1.9 thou/uL (1.20-3.40); #Monocytes 0.4 thou/uL (0.11-0.59); #Neutrophils 2.4 thou/uL (1.40-6.50); %Basophils 0.7 % (0.0-1.0); %Eosinophils 4.1 % (0.0-10.0); %Lymphocytes 39.2 % (21.0-51.0); %Monocytes 7.9 % (0.0-10.0); %Neutrophils 48.2 % (42.0-75.0); Hemoglobin 7.8 g/dL (14.0-18.0); Mean Corpuscular HGB CONC 33.1 g/dL (32.0-36.0); Mean Corpuscular Hemoglobin 31.6 pg (27.0-31.0); Mean Corpuscular Volume 95.3 fl (78.0-98.0); Mean Platelet Volume 7.7 fL (7.4-10.4); Platelet Count 155 10x3/uL (130-400); RBC Distribution Width 12.8 % (11.5-14.5); Red Blood Cell (RBC) Count 2.46 mill/uL (4.70-6.10)
[2022-10-15 05:45] LABS: Anion Gap 12 mmol/L (10-20); BUN (Urea Nitrogen) 25 mg/dL (8.9-20.6); Calc. Creatinine Clearance 35 mL/min (70-130); Calcium 8.2 mg/dL (7.8-10.44); Carbon Dioxide 29 mmol/L (22-29); Chloride 100 mmol/L (98-107); Estimated GFR 24; Glucose 129 mg/dL (70-105); Sodium 137 mmol/L (136-145)
[2022-10-15] MEDS ORDERED: Heparin 10,000 UNITS/ 10 ML VIAL ONE (08:42)
[2022-10-15] MEDS: Metoprolol Tartrate 25 MG TAB PO SCH ×2 (09:00→20:10)
[2022-10-15] MEDS: Losartan 25 MG TAB PO SCH (09:00)
[2022-10-15] MEDS: hydrALAZINE 25 MG TAB PO SCH ×3 (09:00→20:09)
[2022-10-15] MEDS: Amlodipine 10 MG TAB PO SCH (09:00)
[2022-10-15] MEDS: Heparin 5,000 UNITS/ML VIAL SC SCH ×3 (14:22→21:13)
[2022-10-15] MEDS: Ferrous Gluconate 324 MG TAB PO SCH (14:22)
[2022-10-15] MEDS: EPOETIN ALFA-EPBX (ESRD) 10,000 UNIT/ML VIAL SC SCH (15:37)
[2022-10-15] MEDS: Atorvastatin Calcium 20 MG TAB PO SCH (20:09)
[2022-10-15] MEDS: Acetaminophen 325 MG TAB PO PRN (20:27)
[2022-10-16 06:04] LABS: #Eosinphils 0.4 thou/uL (0.0-0.7); #Lymphocytes 2.3 thou/uL (1.20-3.40); #Monocytes 0.5 thou/uL (0.11-0.59); #Neutrophils 2.3 thou/uL (1.40-6.50); %Basophils 0.5 % (0.0-1.0); %Eosinophils 6.5 % (0.0-10.0); %Lymphocytes 41.9 % (21.0-51.0); %Monocytes 9.1 % (0.0-10.0); %Neutrophils 41.9 % (42.0-75.0); Hemoglobin 7.1 g/dL (14.0-18.0); Mean Corpuscular HGB CONC 33.1 g/dL (32.0-36.0); Mean Corpuscular Hemoglobin 31.3 pg (27.0-31.0); Mean Corpuscular Volume 94.5 fl (78.0-98.0); Mean Platelet Volume 7.5 fL (7.4-10.4); Platelet Count 182 10x3/uL (130-400); RBC Distribution Width 12.8 % (11.5-14.5); Red Blood Cell (RBC) Count 2.28 mill/uL (4.70-6.10); White Blood Cell (WBC) Count 5.6 10x3/uL (4.8-10.8)
[2022-10-16] MEDS: Acetaminophen 325 MG TAB PO PRN (06:05)
[2022-10-16 06:35] LABS: Anion Gap 9 mmol/L (10-20); BUN (Urea Nitrogen) 15 mg/dL (8.9-20.6); Calc. Creatinine Clearance 44 mL/min (70-130); Carbon Dioxide 30 mmol/L (22-29); Chloride 98 mmol/L (98-107); Estimated GFR 34; Glucose 115 mg/dL (70-105); Potassium 3.4 mmol/L (3.5-5.1); Sodium 134 mmol/L (136-145)
[2022-10-16 08:02] VITALS: BP 176/81; TEMP 98.3
[2022-10-16] MEDS: Ferrous Gluconate 324 MG TAB PO SCH (09:55)
[2022-10-16] MEDS: Heparin 5,000 UNITS/ML VIAL SC SCH (09:55)
[2022-10-16] MEDS: Amlodipine 10 MG TAB PO SCH (09:55)
[2022-10-16] MEDS: Metoprolol Tartrate 25 MG TAB PO SCH (09:56)
[2022-10-16] MEDS: hydrALAZINE 25 MG TAB PO SCH (09:56)
[2022-10-16] MEDS: Losartan 25 MG TAB PO SCH (09:56)
[2022-10-19] MEDS ORDERED: Furosemide 40 MG TAB PO SCH (09:00)
== END 2022-10-16 12:09 | disposition home or self-care (01) | DRG 674 ==
LOC: ERS 23:50 → CCU 10-07 01:45 → 2SW 10-10 20:26
PROVIDERS: ADMIT Student in an Organized Health Care Education/Training Program; ATTEND Internal Medicine
PROC: 5A1D70Z Performance of Urinary Filtration, Intermittent, Less than 6 Hours Per Day (ICD-10-PCS; 2022-10-07)
PROC: 5A09357 Assistance with Respiratory Ventilation, Less than 24 Consecutive Hours, Continuous Positive Airway Pressure (ICD-10-PCS; 2022-10-09)
PROC: 0JH63XZ Insertion of Tunneled Vascular Access Device into Chest Subcutaneous Tissue and Fascia, Percutaneous Approach (ICD-10-PCS; principal; 2022-10-12)
PROC: 031B0ZF Bypass Right Radial Artery to Lower Arm Vein, Open Approach (ICD-10-PCS; 2022-10-12)
PROC: 02H633Z Insertion of Infusion Device into Right Atrium, Percutaneous Approach (ICD-10-PCS; 2022-10-12)
PROC: 02HV33Z Insertion of Infusion Device into Superior Vena Cava, Percutaneous Approach (ICD-10-PCS; 2022-10-12)
PROC: B5181ZA Fluoroscopy of Superior Vena Cava using Low Osmolar Contrast, Guidance (ICD-10-PCS; 2022-10-12)
PROC: 30233N1 Transfusion of Nonautologous Red Blood Cells into Peripheral Vein, Percutaneous Approach (ICD-10-PCS; 2022-10-13)
DX: N17.9 Acute kidney failure, unspecified (principal); E87.1 Hypo-osmolality and hyponatremia; I12.0 Hypertensive chronic kidney disease with stage 5 chronic kidney disease or end stage renal disease; I31.39 Other pericardial effusion (noninflammatory); R18.8 Other ascites; N18.6 End stage renal disease; E87.5 Hyperkalemia; E11.22 Type 2 diabetes mellitus with diabetic chronic kidney disease; D63.1 Anemia in chronic kidney disease; E78.5 Hyperlipidemia, unspecified; E83.42 Hypomagnesemia; E83.51 Hypocalcemia; R00.1 Bradycardia, unspecified; E66.9 Obesity, unspecified; G47.33 Obstructive sleep apnea (adult) (pediatric); E87.70 Fluid overload, unspecified; Z68.30 Body mass index [BMI] 30.0-30.9, adult; Z79.899 Other long term (current) drug therapy; Z79.84 Long term (current) use of oral hypoglycemic drugs; Z20.822 Contact with and (suspected) exposure to COVID-19; E83.41 Hypermagnesemia; E11.319 Type 2 diabetes mellitus with unspecified diabetic retinopathy without macular edema; E11.42 Type 2 diabetes mellitus with diabetic polyneuropathy; M19.90 Unspecified osteoarthritis, unspecified site
CPT/HCPCS: 36415; 36416; 36430; 36556; 36600; 71045; 76770; 80048; 80053; 82805; 83605; 83735; 83880; 84443; 84484; 85025; 86580; 86704; 86850; 86900; 86901; 87040; 87811; 90935; 93005; 93970; 94660; 96374; 96375; 96376; C1751; C1752; C1769; C1776; G0257; J0610; J0611; J1644; J1815; J2250; J2720; J3010; J3490; J7999; P9016; Q5105; U0002

== ENCOUNTER 2022-12-31 10:35 | Emergency (ER) | payer MEDICAID, SELFPAY ==
[2022-12-31 12:17] LABS: #Basophils 0.1 thou/uL (0.0-0.2); #Eosinphils 0.2 thou/uL (0.0-0.7); #Lymphocytes 2.2 thou/uL (1.20-3.40); #Monocytes 0.4 thou/uL (0.11-0.59); #Neutrophils 2.1 thou/uL (1.40-6.50); %Basophils 1.1 % (0.0-1.0); %Eosinophils 3.3 % (0.0-10.0); %Lymphocytes 45.9 % (21.0-51.0); %Monocytes 7.6 % (0.0-10.0); %Neutrophils 42.1 % (42.0-75.0); Mean Corpuscular HGB CONC 33.5 g/dL (32.0-36.0); Mean Corpuscular Hemoglobin 31.8 pg (27.0-31.0); Mean Platelet Volume 8.3 fL (7.4-10.4); Platelet Count 247 10x3/uL (130-400); RBC Distribution Width 12.6 % (11.5-14.5); Red Blood Cell (RBC) Count 2.52 mill/uL (4.70-6.10); White Blood Cell (WBC) Count 4.9 10x3/uL (4.8-10.8)
[2022-12-31 12:19] LABS: ALT (SGPT) 54 U/L (8-55); AST (SGOT) 31 U/L (5-34); Albumin 3.7 g/dL (3.5-5.0); Alkaline Phosphatase 128 U/L (40-110); Anion Gap 16 mmol/L (10-20); BUN (Urea Nitrogen) 96 mg/dL (8.9-20.6); Bilirubin, Total 0.3 mg/dL (0.2-1.2); Calc. Creatinine Clearance 0 mL/min (70-130); Calcium 8.7 mg/dL (7.8-10.44); Carbon Dioxide 14 mmol/L (22-29); Chloride 110 mmol/L (98-107); Estimated GFR 19; Globulin 3.6 g/dL (2.4-3.5); Glucose 105 mg/dL (70-105); Iron 49 ug/dL (65-175); Potassium 5.5 mmol/L (3.5-5.1); Protein, Total 7.3 g/dL (6.0-8.3); Sodium 134 mmol/L (136-145)
== END 2022-12-31 17:02 | disposition home or self-care (01) ==
LOC: ERS 10:35
DX: T68.XXXA Hypothermia, initial encounter (principal); E11.9 Type 2 diabetes mellitus without complications; I10 Essential (primary) hypertension; E78.5 Hyperlipidemia, unspecified; Z79.899 Other long term (current) drug therapy
CPT/HCPCS: 36415; 71045; 80053; 83540; 83605; 83690; 85025

== ENCOUNTER 2023-05-18 17:03 | Emergency (ER) | payer SELFPAY ==
[2023-05-18 18:41] LABS: #Basophils 0.1 thou/uL (0.0-0.2); #Eosinphils 0.3 thou/uL (0.0-0.7); #Monocytes 0.4 thou/uL (0.11-0.59); #Neutrophils 1.9 thou/uL (1.40-6.50); %Basophils 1.8 % (0.0-1.0); %Eosinophils 8.5 % (0.0-10.0); %Lymphocytes 24.3 % (21.0-51.0); %Monocytes 10.3 % (0.0-10.0); %Neutrophils 54.8 % (42.0-75.0); Hematocrit 27.5 % (42.0-52.0); Hemoglobin 8.4 g/dL (14.0-18.0); Mean Corpuscular HGB CONC 30.5 g/dL (32.0-36.0); Mean Corpuscular Hemoglobin 29.6 pg (27.0-31.0); Mean Corpuscular Volume 96.8 fl (78.0-98.0); Mean Platelet Volume 9.4 fL (7.4-10.4); Platelet Count 228 10x3/uL (130-400); RBC Distribution Width 13.5 % (11.5-14.5); Red Blood Cell (RBC) Count 2.84 mill/uL (4.70-6.10); White Blood Cell (WBC) Count 3.4 10x3/uL (4.8-10.8)
[2023-05-18 19:07] LABS: ALT (SGPT) 25 U/L (8-55); AST (SGOT) 22 U/L (5-34); Albumin 3.3 g/dL (3.5-5.0); Alkaline Phosphatase 151 U/L (40-110); Anion Gap 13 mmol/L (10-20); BUN (Urea Nitrogen) 96 mg/dL (8.9-20.6); Bilirubin, Total 0.2 mg/dL (0.2-1.2); Calc. Creatinine Clearance 0 mL/min (70-130); Calcium 7.8 mg/dL (7.8-10.44); Carbon Dioxide 19 mmol/L (22-29); Chloride 106 mmol/L (98-107); Estimated GFR 14; Globulin 3.4 g/dL (2.4-3.5); Glucose 138 mg/dL (70-105); Protein, Total 6.7 g/dL (6.0-8.3); Sodium 133 mmol/L (136-145)
[2023-05-18 19:36] LABS: Troponin I 0.019 ng/mL (< 0.028)
== END 2023-05-18 20:24 | disposition home or self-care (01) ==
LOC: ERS 17:03
DX: T82.49XA Other complication of vascular dialysis catheter, initial encounter (principal); E11.9 Type 2 diabetes mellitus without complications; I10 Essential (primary) hypertension; E78.5 Hyperlipidemia, unspecified; Z79.899 Other long term (current) drug therapy
CPT/HCPCS: 36415; 80053; 84484; 85025; 99284